=== PATIENT | female | born 1970 | race Caucasian/White ===

== ENCOUNTER → 2020-05-13 | Outpatient (CLI) | payer OTHER | LOC: RAD 12:58 | PROVIDERS: ATTEND Family Medicine | DX: S22.32XD Fracture of one rib, left side, subsequent encounter for fracture with routine healing (principal); X58.XXXD Exposure to other specified factors, subsequent encounter ==

== ENCOUNTER → 2020-06-02 | Outpatient (CLI) | payer OTHER | LOC: RAD 14:02 | PROVIDERS: ATTEND Family Medicine | DX: S22.42XD Multiple fractures of ribs, left side, subsequent encounter for fracture with routine healing (principal); X58.XXXD Exposure to other specified factors, subsequent encounter ==

== ENCOUNTER → 2020-11-04 | Outpatient (CLI) | payer BC | LOC: RAD 16:36 | PROVIDERS: ATTEND Family Medicine | DX: R07.81 Pleurodynia (principal) ==